=== PATIENT | male | born 1945 | race Caucasian/White ===

== ENCOUNTER 2018-12-25 16:44 | Emergency (ER) | payer MEDICARE, BC ==
[~2018-12-25] VITALS: Ht 180.3 cm; Wt 107.7 kg
[2018-12-25] MEDS ORDERED: LIDOCAINE 1% MDV 20ML VIAL SC ONE (17:15)
[2018-12-25] MEDS ORDERED: ADACEL/BOOSTRIX VACCINE (DIPHTH/PERTUSS/ACELL/TETANUS)0.5ML SYR (90715) IM ONE (17:15)
[2018-12-25] MEDS ORDERED: BACITRACIN OINT 30GM TOP ONE (17:15)
[2018-12-25] MEDS ORDERED: KEFL500C17 PO (18:39)
[2018-12-25 18:51] VITALS: BP 204/96
== END 2018-12-25 18:55 | disposition home or self-care (01) ==
LOC: M ED 16:44
DX: S91.311A Laceration without foreign body, right foot, initial encounter (principal); S91.312A Laceration without foreign body, left foot, initial encounter; W26.8XXA Contact with other sharp object(s), not elsewhere classified, initial encounter; Y92.89 Other specified places as the place of occurrence of the external cause; Z87.891 Personal history of nicotine dependence